=== PATIENT | male | born 1960 | race Hispanic/Latino ===

== ENCOUNTER 2022-03-14 19:52 | Inpatient (IN) | payer OTHER ==
[~2022-03-14] VITALS: Ht 170.2 cm; Wt 146.2 kg
[2022-03-14 20:22] LABS: BASOPHILS % (AUTO) 0.4 % (0.0-5.0); EOSINOPHILS % (AUTO) 1.6 % (0.0-8.0); HEMATOCRIT 40.5 % (42-54); LYMPHOCYTES % (AUTO) 12.5 % (21.0-51.0); MEAN CORPUSCULAR HEMOGLOBIN 28.6 pg (27.0-33.0); MEAN CORPUSCULAR HGB CONC 32.3 g/dL (32.0-36.0); MEAN CORPUSCULAR VOLUME 88.4 fL (79-99); MONOCYTES % (AUTO) 7.6 % (3.0-13.0); NEUTROPHILS % (AUTO) 77.2 % (40.0-77.0); PLATELET COUNT (AUTO) 154 K/uL (130-400); RED BLOOD CELL COUNT(AUTO) 4.58 MIL/uL (4.50-6.20); RED CELL DISTRIBUTION WIDTH 15.9 % (11.0-15.5); WHITE BLOOD COUNT (AUTO) 10.3 K/uL (4.8-10.8)
[2022-03-14] MEDS ORDERED: ZOSYN 3.375GM +NS 50ML IV SCH (20:30)
[2022-03-14] MEDS ORDERED: 0.9%NACL 1000ML 1,000 ML IV ONE ×2 (20:30→21:00)
[2022-03-14] MEDS ORDERED: VANCOMYCIN 1G VIAL IVPB ONE (20:30)
[2022-03-14] MEDS ORDERED: ACETAMINOPHEN 500 MG TABLET PO ONE (20:30)
[2022-03-14 20:34] LABS: INR 1.1 (0.85-1.15); PROTHROMBIN TIME 11.9 SEC (9.6-11.6)
[2022-03-14 20:35] LABS: PARTIAL THROMBOPLASTIN TIME 28.6 SEC (26.3-35.5)
[2022-03-14 20:38] LABS: CREATININE 0.9 mg/dL (0.5-1.5); POTASSIUM 3.4 mmol/L (3.5-5.1)
[2022-03-14 20:40] LABS: APPEARANCE,URINE Clear (CLEAR); BILIRUBIN,URINE Negative (NEGATIVE); COLOR,URINE Yellow (YELLOW); GLUCOSE, URINE (UA) Negative (NEGATIVE); KETONES,URINE Negative (NEGATIVE); LEUKOCYTE ESTERASE ,URINE Negative (NEGATIVE); NITRATE,URINE Negative (NEGATIVE); OCCULT BLOOD,URINE Moderate (NEGATIVE); PROTEIN,URINE Negative (NEGATIVE); UROBILINOGEN,URINE 0.2 mg/dL (0.2-1.0)
[2022-03-14 20:45] LABS: BILIRUBIN,TOTAL 0.4 mg/dL (0.2-1.0); TOTAL PROTEIN, SERUM 7.8 g/dL (6.0-8.3)
[2022-03-14 20:52] LABS: BACTERIA,URINE Few /HPF (None Seen); RBC,URINE 0-1 /HPF (0-1); WBC,URINE 0-1 /HPF (0-1)
[2022-03-14 20:53] LABS: B-TYPE NATRIURETIC PEPTIDE 17 pg/mL (0-100)
[2022-03-14 20:53] LABS: SQUAMOUS EPITHELIAL CELL,UR Rare /HPF (0-2)
[2022-03-14] MEDS ORDERED: VANCOMYCIN 1G/250ML KIT 250 ML IV ONE ×2 (20:58→21:43)
[2022-03-14] MEDS ORDERED: ZOSYN 3.375GM+NS 50ML 50 ML ONE (20:58)
[2022-03-14] MEDS ORDERED: ACETAMINOPHEN 500 MG TABLET ONE (20:58)
[2022-03-14] MEDS ORDERED: POTASSIUM CHLORIDE 20MEQ/100ML 100 ML IV PRN (21:30)
[2022-03-14] MEDS: VANCOMYCIN 1.5GM/NS 250ML IV SCH ×2 (21:30)
[2022-03-14] MEDS ORDERED: VANCOMYCIN PROTOCOL PER PHARMACY IV PRN (21:30)
[2022-03-14] MEDS ORDERED: MORPHINE 2 MG SYG IV PRN (21:30)
[2022-03-14] MEDS ORDERED: POTASSIUM CHLORIDE 10% ELIXIR 20 MEQ/15 ML UDCUP PO PRN (21:30)
[2022-03-14] MEDS ORDERED: MORPHINE 4 MG SYG IV PRN (21:30)
[2022-03-14] MEDS ORDERED: ACETAMINOPHEN 325 MG TAB PO PRN (21:30)
[2022-03-14] MEDS ORDERED: ONDANSETRON 4MG INJ IV PRN (21:30)
[2022-03-14] MEDS ORDERED: LACTATED RINGERS 1000ML 1,983 ML IV ONE (21:30)
[2022-03-14] MEDS ORDERED: LIDOCAINE HCL-MPF 1% 2ML VIAL IV PRN (21:30)
[2022-03-14] MEDS ORDERED: COMPOUND IV REFRIGERATED 1 EACH IVSOLN MISC PRN (22:00)
[2022-03-15 00:05] VITALS: BP 124/67
[2022-03-15 03:31] VITALS: BP 111/70
[2022-03-15 04:30] LABS: BASOPHILS % (AUTO) 0.4 % (0.0-5.0); EOSINOPHILS % (AUTO) 2.4 % (0.0-8.0); HEMATOCRIT 36.3 % (42-54); LYMPHOCYTES % (AUTO) 16.2 % (21.0-51.0); MEAN CORPUSCULAR HEMOGLOBIN 27.8 pg (27.0-33.0); MEAN CORPUSCULAR HGB CONC 31.4 g/dL (32.0-36.0); MEAN CORPUSCULAR VOLUME 88.5 fL (79-99); MONOCYTES % (AUTO) 9.3 % (3.0-13.0); PLATELET COUNT (AUTO) 149 K/uL (130-400); RED CELL DISTRIBUTION WIDTH 15.8 % (11.0-15.5); WHITE BLOOD COUNT (AUTO) 9.5 K/uL (4.8-10.8)
[2022-03-15 04:43] LABS: HEMOGLOBIN A1C 6.5 % (4.0-6.0)
[2022-03-15 04:54] LABS: CREATININE 0.9 mg/dL (0.5-1.5); MAGNESIUM 1.8 mg/dL (1.80-2.40); PHOSPHORUS 4.1 mg/dL (2.5-4.9); POTASSIUM 3.3 mmol/L (3.5-5.1)
[2022-03-15] MEDS: ZOSYN 3.375GM+NS 50ML 50 ML IV SCH ×2 (05:27→13:20)
[2022-03-15 08:00] VITALS: BP 142/73
[2022-03-15] MEDS ORDERED: MAGNESIUM 2GM PREMIX 50ML 50 ML IV PRN (10:30)
[2022-03-15] MEDS ORDERED: KCL 20 MEQ ERTAB PO SCH (10:30)
[2022-03-15] MEDS: FUROSEMIDE 20MG VIAL IV SCH (11:07)
[2022-03-15] MEDS: FAMOTIDINE 20MG TAB PO SCH ×2 (11:07→21:08)
[2022-03-15] MEDS: ENOXAPARIN SODIUM 40 MG/0.4 ML SYRINGE SQ SCH (11:08)
[2022-03-15] MEDS: POTASSIUM CHLORIDE 20 MEQ/100 ML BAG IV SCH (11:09)
[2022-03-15] MEDS: VANCOMYCIN 1.5GM/NS 250ML IV SCH ×4 (11:31→21:15)
[2022-03-15 12:00] VITALS: BP 160/80
[2022-03-15] MEDS ORDERED: LOSARTAN 50 MG TABLET PO SCH (13:00)
[2022-03-15] MEDS: CEFAZOLIN SODIUM 1 GM VIAL IVP SCH ×2 (14:50→21:14)
[2022-03-15 16:00] VITALS: BP 141/70
[2022-03-15] MEDS: ACETAMINOPHEN WITH CODEINE 1 TAB TAB PO PRN (16:48)
[2022-03-15 20:18] VITALS: BP 127/71
[2022-03-15] MEDS: KCL 20 MEQ ERTAB PO PRN (21:08)
[2022-03-16 00:10] VITALS: BP 109/65
[2022-03-16 03:46] VITALS: BP 119/63
[2022-03-16] MEDS: CEFAZOLIN SODIUM 1 GM VIAL IVP SCH ×3 (06:18→22:28)
[2022-03-16 07:30] VITALS: BP 124/54
[2022-03-16] MEDS: ENOXAPARIN SODIUM 40 MG/0.4 ML SYRINGE SQ SCH (07:52)
[2022-03-16] MEDS: LOSARTAN 50 MG TABLET PO SCH (07:53)
[2022-03-16] MEDS: ACETAMINOPHEN WITH CODEINE 1 TAB TAB PO PRN ×2 (07:53→17:44)
[2022-03-16] MEDS: FAMOTIDINE 20MG TAB PO SCH ×2 (07:53→20:25)
[2022-03-16 07:55] LABS: BASOPHILS % (AUTO) 0.4 % (0.0-5.0); EOSINOPHILS % (AUTO) 3.4 % (0.0-8.0); HEMATOCRIT 37.2 % (42-54); MEAN CORPUSCULAR HEMOGLOBIN 28.1 pg (27.0-33.0); MEAN CORPUSCULAR HGB CONC 31.5 g/dL (32.0-36.0); MEAN CORPUSCULAR VOLUME 89.2 fL (79-99); MONOCYTES % (AUTO) 11.2 % (3.0-13.0); NEUTROPHILS % (AUTO) 67.1 % (40.0-77.0); PLATELET COUNT (AUTO) 152 K/uL (130-400); RED BLOOD CELL COUNT(AUTO) 4.17 MIL/uL (4.50-6.20); RED CELL DISTRIBUTION WIDTH 15.6 % (11.0-15.5); WHITE BLOOD COUNT (AUTO) 6.7 K/uL (4.8-10.8)
[2022-03-16 08:20] LABS: CREATININE 0.9 mg/dL (0.5-1.5); POTASSIUM 3.9 mmol/L (3.5-5.1)
[2022-03-16] MEDS: VANCOMYCIN 1.5GM/NS 250ML IV SCH ×4 (10:42→20:26)
[2022-03-16] MEDS: FUROSEMIDE 20MG VIAL IV SCH (10:43)
[2022-03-16] MEDS: POTASSIUM CHLORIDE 20 MEQ/100 ML BAG IV SCH (10:44)
[2022-03-16 11:00] VITALS: BP 124/64
[2022-03-16 16:00] VITALS: BP 143/74
[2022-03-16 19:35] VITALS: BP 114/50
[2022-03-16] MEDS ORDERED: LOSA50TA64 PO (23:41)
[2022-03-17] VITALS (7 sets, daily range): BP systolic 107–148; BP diastolic 51–87
[2022-03-17] MEDS ORDERED: LOSARTAN 50 MG TABLET PO SCH (01:00)
[2022-03-17 05:24] LABS: HEMATOCRIT 38.9 % (42-54); MEAN CORPUSCULAR HEMOGLOBIN 28.4 pg (27.0-33.0); MEAN CORPUSCULAR HGB CONC 31.9 g/dL (32.0-36.0); RED BLOOD CELL COUNT(AUTO) 4.37 MIL/uL (4.50-6.20); RED CELL DISTRIBUTION WIDTH 15.2 % (11.0-15.5); WHITE BLOOD COUNT (AUTO) 7.5 K/uL (4.8-10.8)
[2022-03-17] MEDS: CEFAZOLIN SODIUM 1 GM VIAL IVP SCH ×2 (05:43→15:21)
[2022-03-17 05:47] LABS: CREATININE 0.9 mg/dL (0.5-1.5); MAGNESIUM 2.3 mg/dL (1.80-2.40); POTASSIUM 3.9 mmol/L (3.5-5.1)
[2022-03-17] MEDS: ACETAMINOPHEN WITH CODEINE 1 TAB TAB PO PRN (05:49)
[2022-03-17] MEDS: FAMOTIDINE 20MG TAB PO SCH ×2 (08:10→20:32)
[2022-03-17] MEDS: ENOXAPARIN SODIUM 40 MG/0.4 ML SYRINGE SQ SCH (08:12)
[2022-03-17] MEDS: VANCOMYCIN 1.5GM/NS 250ML IV SCH ×2 (08:12)
[2022-03-17] MEDS: LOSARTAN 50 MG TABLET PO SCH (11:32)
[2022-03-17] MEDS: FUROSEMIDE 20MG VIAL IV SCH (11:33)
[2022-03-17] MEDS: POTASSIUM CHLORIDE 20 MEQ/100 ML BAG IV SCH (11:33)
[2022-03-17] MEDS ORDERED: PHARMACY COMMUNICATION MISC SCH (15:30)
[2022-03-17] MEDS ORDERED: VANCOMYCIN 1.25GM/NS 250ML IVPB SCH ×2 (21:00)
[2022-03-17] MEDS: VANCOMYCIN 1G 1.75 GM in 0.9% NACL 250ML 250 ML IVPB SCH (21:32)
[2022-03-18] MEDS: CEFAZOLIN SODIUM 1 GM VIAL IVP SCH ×2 (02:27→12:15)
[2022-03-18 04:00] VITALS: BP 127/72
[2022-03-18 05:15] LABS: HEMATOCRIT 37.4 % (42-54); MEAN CORPUSCULAR HEMOGLOBIN 27.6 pg (27.0-33.0); MEAN CORPUSCULAR HGB CONC 31.6 g/dL (32.0-36.0); MEAN CORPUSCULAR VOLUME 87.4 fL (79-99); RED BLOOD CELL COUNT(AUTO) 4.28 MIL/uL (4.50-6.20); RED CELL DISTRIBUTION WIDTH 15.2 % (11.0-15.5)
[2022-03-18 05:43] LABS: CREATININE 0.9 mg/dL (0.5-1.5); POTASSIUM 3.7 mmol/L (3.5-5.1)
[2022-03-18 08:00] VITALS: BP 138/77
[2022-03-18] MEDS: VANCOMYCIN 1G 1.75 GM in 0.9% NACL 250ML 250 ML IVPB SCH (08:43)
[2022-03-18] MEDS: ENOXAPARIN SODIUM 40 MG/0.4 ML SYRINGE SQ SCH (08:44)
[2022-03-18] MEDS: FAMOTIDINE 20MG TAB PO SCH (08:44)
[2022-03-18] MEDS: LOSARTAN 50 MG TABLET PO SCH (08:44)
[2022-03-18] MEDS: KCL 20 MEQ ERTAB PO PRN ×2 (08:45→12:16)
[2022-03-18] MEDS: POTASSIUM CHLORIDE 20 MEQ/100 ML BAG IV SCH (10:30)
[2022-03-18 12:00] VITALS: BP 141/86
[2022-03-18] MEDS: FUROSEMIDE 20MG VIAL IV SCH (12:16)
== END 2022-03-18 15:10 | disposition home or self-care (01) | DRG 871 ==
LOC: EDH 19:52 → EDHIP 21:12 → 3CH 03-15 00:15
PROVIDERS: ADMIT Internal Medicine; ATTEND Internal Medicine
DX: A41.9 Sepsis, unspecified organism (principal); L89.94 Pressure ulcer of unspecified site, stage 4; I46.9 Cardiac arrest, cause unspecified; J96.90 Respiratory failure, unspecified, unspecified whether with hypoxia or hypercapnia; J18.9 Pneumonia, unspecified organism; L03.115 Cellulitis of right lower limb; Z68.43 Body mass index [BMI] 50.0-59.9, adult; E87.6 Hypokalemia; I10 Essential (primary) hypertension; R73.9 Hyperglycemia, unspecified; E66.01 Morbid (severe) obesity due to excess calories; R53.81 Other malaise
CPT/HCPCS: 36415; 71045; 73700; 80048; 80053; 80202; 81001; 82948; 83036; 83605; 83735; 83880; 84100; 84145; 84484; 85025; 85027; 85610; 85730; 86140; 87040; 93005; 93925; 93971; G0378; J0690; J1650; J1940; J2543; J3370; J3475; J3480; J3490; J7030; J7050; J7120